=== PATIENT | female | born 1975 | race Native Hawaiian/Other Pacific Islander ===

== ENCOUNTER 2021-07-08 14:40 | Emergency (ER) | payer OTHER ==
[~2021-07-08] VITALS: Ht 154.9 cm; Wt 70.3 kg
[2021-07-08 14:57] VITALS: TEMP 98
[2021-07-08 15:31] LABS: PLATELET COUNT 298 K/uL (152-353); SODIUM 136 mmol/L (136-145)
[2021-07-08 15:52] LABS: PARTIAL THROMBOPLASTIN TIME 24.1 SECONDS (24.5-33.6)
[2021-07-08 16:39] VITALS: BP 130/88
== END 2021-07-08 16:39 | disposition home or self-care (01) ==
LOC: ED 14:40
PROVIDERS: Hospitalist
DX: R00.2 Palpitations (principal); R07.89 Other chest pain; E87.6 Hypokalemia
CPT/HCPCS: 80053; 82550; 83690; 83880; 84484; 85027; 85379; 85610; 85730; 93005; 99283